=== PATIENT | male | born 1995 | race Caucasian/White ===

== ENCOUNTER 2017-11-07 09:45 | Emergency (ER) | payer MEDICAID, OTHER ==
[~2017-11-07] VITALS: Ht 172.7 cm; Wt 60.1 kg
[2017-11-07 09:54] VITALS: Ht 172.7 cm; Wt 60.1 kg
[2017-11-07] MEDS ORDERED: DIPHTH/TET/ACEL PERTUSS (ADULT) 0.5 ML VIAL IM* ONE (11:00)
--- NOTE | 2017-11-07 11:07 | ERD ---
ER Documentation Chief Complaint Chief Complaint head lac last night, hit corner of table HPI 22-year-old male states that he was leaning forward and hit the corner table causing a laceration on the right frontal scalp at approximately 9 PM last night. The patient experienced pain but no loss consciousness, no vomiting and no visual changes. Patient states "I do not think it was that bad" until his friend noted at this morning and he decided to get evaluated. Last tetanus shot is unknown. He has no medical complaints at this time aside from laceration. ROS All systems reviewed and are negative except as per history of present illness. Allergies Allergies: Coded Allergies: No Known Allergy (Unverified , 11/07/17) PMhx/Soc Medical and Surgical Hx: pt denies Medical Hx, pt denies Surgical Hx Hx Alcohol Use: Yes Hx Substance Use: No Hx Tobacco Use: Yes Smoking Status: Current some day smoker Physical Exam Vitals Vital Signs Date Time Temp Pulse Resp B/P Pulse Ox O2 Delivery O2 Flow Rate FiO2 11/07/17 09:54 98.0 80 18 139/72 98 Physical Exam General: Well-developed, well-nourished. The patient appears in no acute distress. HEENT: Head is normocephalic, extraocular movements intact, eyes are Marva. No scleral icterus. 3 cm right frontal scalp laceration, it is superficial, no active bleeding. Neck: Supple. Nontender. Lungs: Clear to auscultation. Normal air movement. Heart: Regular rate and rhythm. S1 and S2 are normal. No murmurs, gallops, or rubs. Abdomen: Nondistended. Extremities: No clubbing or cyanosis. Moving extremities x 4. No weakness. Neurologic: Alert and oriented 3. No focal deficits. Normal speech and gait. Skin: Normal turgor. No rash or lesions. Results 24 hrs Current Medications Medications (Trade) Dose Ordered Sig/Yue Route PRN Reason Start Time Stop Time Status Last Admin Dose Admin Diphtheria/ Tetanus/Acell Pertussis (Adacel) 0.5 ml ONCE ONCE IM* 11/07/17 11:00 11/07/17 11:01 DC 11/07/17 11:06 Procedures/MDM ED COURSE: Irrigation of the wound was done, including hydrogen peroxide. The patient's tetanus was updated. Laceration Repair by me: Anesthesia: 1% lidocaine locally Location: Right frontal scalp Tendon/Joint/Nerves: No injury Foreign body: None detected after copious irrigation and exploration Technique: 3 using nazario Complexity: No subcutaneous sutures/mucosal repair/ edge excision Post Closure Length: 3 cm Patient's bleeding was easily controlled in the department and there is no indication of anemia. No evidence of compartment syndrome, neurologic injury, vascular injury, open joint, tendon laceration, or foreign body. Patient is appropriate for outpatient follow up. 48 hour wound check. Scar minimization instructions given. MEDICAL DECISION MAKIN-year-old male comes in with a scalp laceration from blunt trauma, the patient states that he was leaning forward and hit his head against the corner of the table comes with a superficial scalp laceration on the right side, was closed with nazario. There are no signs altered mental status, history does not include vomiting or headaches, loss of consciousness. This appears to be superficial injury to the scalp, and will be discharged home, will defer CT scan of the head given the benign history and mechanism of injury. Departure Diagnosis: Primary Impression: Laceration Condition: VADIM Orozco PA-C Nov 07, 2017 11:07
== END 2017-11-07 12:07 | disposition home or self-care (01) ==
LOC: FTE 09:45
DX: S01.01XA Laceration without foreign body of scalp, initial encounter (principal); F17.210 Nicotine dependence, cigarettes, uncomplicated; W22.8XXA Striking against or struck by other objects, initial encounter; Y92.9 Unspecified place or not applicable; Z23 Encounter for immunization
CPT/HCPCS: 12002; 90471; 90715; Z7502

== ENCOUNTER 2017-11-14 19:51 | Emergency (ER) | payer SELFPAY ==
[~2017-11-14] VITALS: Ht 167.6 cm; Wt 60.2 kg
[2017-11-14 19:54] VITALS: Ht 167.6 cm; Wt 60.2 kg
== END 2017-11-14 21:13 | disposition left against medical advice (07) ==
LOC: FTE 19:51
DX: Z53.21 Procedure and treatment not carried out due to patient leaving prior to being seen by health care provider (principal)

== ENCOUNTER 2017-11-15 19:27 | Emergency (ER) | payer SELFPAY ==
[~2017-11-15] VITALS: Ht 167.6 cm; Wt 60.2 kg
[2017-11-15 19:37] VITALS: Ht 167.6 cm; Wt 60.2 kg
== END 2017-11-15 22:30 | disposition left against medical advice (07) ==
LOC: E/R 19:27
DX: Z53.21 Procedure and treatment not carried out due to patient leaving prior to being seen by health care provider (principal)

== ENCOUNTER 2017-11-16 20:42 | Emergency (ER) | payer MEDICAID ==
[~2017-11-16] VITALS: Ht 167.6 cm; Wt 60.6 kg
[2017-11-16 20:53] VITALS: Ht 167.6 cm; Wt 60.6 kg
--- NOTE | 2017-11-16 21:51 | ERD ---
ER Documentation Chief Complaint Chief Complaint staple removal right side of scalp. states stapled 8 days ago HPI This is a 22-year-old male presenting to the emergency department for staple removal of a repaired laceration a days prior to being seen. He denies any complications. Denies pain ROS All systems reviewed and are negative except as per history of present illness. Allergies Allergies: Coded Allergies: No Known Allergy (Unverified , 11/16/17) PMhx/Soc Hx Alcohol Use: Yes Hx Substance Use: No Hx Tobacco Use: Yes Physical Exam Vitals Vital Signs Date Time Temp Pulse Resp B/P Pulse Ox O2 Delivery O2 Flow Rate FiO2 11/16/17 20:53 98.3 82 20 156/82 98 Physical Exam Const: [] Head: Atraumatic Eyes: Normal Conjunctiva ENT: Normal External Ears, Nose and Mouth. Neck: Full range of motion..~ No meningismus. Resp: Clear to auscultation bilaterally Cardio: Regular rate and rhythm, no murmurs Abd: Soft, non tender, non distended. Normal bowel sounds Skin: 3 nazario INTACT Back: No midline or flank tenderness Ext: No cyanosis, or edema Neur: Awake and alert Psych: Normal Mood and Affect Procedures/MDM This is a 22-year-old male presenting to the emergency department for a staple removal of a repaired lack on his scalp 8 days prior to being seen. No evidence of cellulitis, dehiscence. 3 nazario removed with no complication Departure Diagnosis: Primary Impression: Encounter for removal of nazario Condition: Stable Patient Instructions: Staple Removal, No Complication Referrals: NO PRIMARY,CARE PHYSICIAN (PCP) ESTEFANY GARCIA PA-C Nov 16, 2017 21:51
== END 2017-11-17 08:23 | disposition home or self-care (01) ==
LOC: E/R 20:42
DX: Z48.02 Encounter for removal of sutures (principal); F17.210 Nicotine dependence, cigarettes, uncomplicated
CPT/HCPCS: 99281